=== PATIENT | female | born 1985 ===

== ENCOUNTER 2020-11-24 07:04 | Emergency (ER) | payer OTHER ==
[~2020-11-24] VITALS: Ht 170.2 cm; Wt 66.7 kg
[2020-11-24 07:10] VITALS: BP 136/96
== END 2020-11-24 07:29 | disposition home or self-care (01) ==
LOC: ED 07:25
DX: J00 Acute nasopharyngitis [common cold] (principal); J06.9 Acute upper respiratory infection, unspecified; Z20.822 Contact with and (suspected) exposure to COVID-19; J45.909 Unspecified asthma, uncomplicated
CPT/HCPCS: 99283; U0003; U0005